=== PATIENT | female | born 1955 | race Caucasian/White ===

== ENCOUNTER 2016-09-11 05:39 | Inpatient (IN) | payer OTHER ==
[2016-09-11] MEDS ORDERED: OXYCODONE (OxyCONTIN) 20 MG TAB PO ONE (06:28)
[2016-09-11] MEDS ORDERED: Celecoxib 200 MG CAP PO ONE (06:28)
[2016-09-11] MEDS ORDERED: CEFAZOLIN 1 GM VIAL ONE (06:35)
[2016-09-11] MEDS ORDERED: LABETALOL 20 MG/4 ML SYRINGE IV PRN (06:59)
[2016-09-11] MEDS ORDERED: HYDROmorphone 1 MG INJECTION IV PRN ×4 (06:59→11:22)
[2016-09-11] MEDS ORDERED: ONDANSETRON HCL 4 MG ODT TAB PO PRN (06:59)
[2016-09-11] MEDS ORDERED: MEPERIDINE 25 MG/ML TUBEX IV PRN (06:59)
[2016-09-11] MEDS ORDERED: PROMETHAZINE 25 MG/ML VIAL IV PRN ×2 (06:59)
[2016-09-11] MEDS ORDERED: FENTANYL 100 MCG/2 ML VIAL IV PRN ×2 (06:59)
[2016-09-11] MEDS ORDERED: ONDANSETRON HCL 4 MG/2 ML VIAL IV PRN (06:59)
[2016-09-11] MEDS ORDERED: hydrALAZINE 20 MG/ML VIAL IV PRN (06:59)
[2016-09-11] MEDS ORDERED: Acetaminophen, Intravenous 1,000 MG/100 ML IVBOT IV ONE (07:00)
--- NOTE | 2016-09-11 07:00 | SC.ANESPOS ---
Post-Anesthesia Note LOC: [facility] Calling Post-Anesthesia Assessment: Awake, Returned to Baseline, Hemodynamically Stable , Pain Control Adequate Phase I & II Recovery Complete: Yes Apparent Anesthesia Complication: No : N - Vital Signs Blood Pressure: 138/78 Pulse: 78 Resp Rate: 18 O2 Sat: 98 Temp: 98.9 F
[2016-09-11 07:01] LABS: BLOOD UREA NITROGEN 12 MG/DL (7-17); CALCIUM 9.1 MG/DL (8.4-10.2); CALCULATED OSMOLALITY 269 MOs/Kg (270-290); CHLORIDE 104 mEq/L (98-107); GLUCOSE 97 MG/DL (70-99); SODIUM LEVEL 140 mEq/L (137-146)
--- NOTE | 2016-09-11 07:01 | HIM.ANES ---
Anesthesia Evaluation & Plan Diagnoses: UNILATERAL PRIMARY OSTEOARTHRITIS, LEFT KNEE (09/11/16) - Focused Review of Systems Cardiac History: No: Hx Cardiac Disorders HEENT: Yes: Hx Vision Problem (GLASSES), Other HEENT Problems Hx Other HEENT Problems: CHRONIC SINUSITIS AND RHINNITIS Gastrointestinal: Yes: Hx Gastroesophageal Reflux Disease (Controlled), Hx Gastrointestinal Disorders, Hx Diverticulitis (DIVERTICULOSIS), Hx Colonoscopy ( 12/2012), Hx Endoscopy (12/2012) Neurological/Musculoskeletal: Yes: Hx Back Pain No: Hx Neurological Disorders Psychological: No Hx Mental/Emotional Disorders Blood/Autoimmune: No: Hx Blood Transfusions, Hx AIDS, Hx Hepatitis (type) Smoking Status: Never smoker Other Surgical History: BILATERAL BREAST AUGMENTATION 2006 STRETCHED URETHRA - Focused Physical Exam Mallampati: Class II Thyromental Distance: Greater than 3 Neck: Full Range of Motion Dental: Normal - no significant findings, Other (Caps) Cardiovascular/Chest: Normal Respiratory: Lungs clear Any problems with anesthesia, including nausea and vomiting?: Yes (NAUSEA) Any relatives with a history of Malignant Hyperthermia?: No Beta Audra given (if appropriate): N/A Does the patient have a history of Motion Sickness-: Yes Other: Allergies Allergy/AdvReac Type Severity Reaction Status Date / Time iodine Allergy Severe Hives* Verified 09/11/16 06:52 latex Allergy INFLAMATION Verified 09/11/16 06:52 Home Medications Medication Instructions Recorded Last Taken Type Hydrocodone Bit/Acetaminophen 1 tab PO Q4H PRN 12/11/12 09/10/16 09:00 History [Hydrocodon-Acetaminophn 10-325] Loratadine [Claritin] 10 mg PO DAILY 12/11/12 09/11/16 05:00 History Calcium Carb & Cit/Vitamin D3 2 tab PO DAILY 09/04/16 09/10/16 09:00 History [Calcium + D3 ER Tab (600mg/500IU)] Methylcellulose [Fiber] 2,000 mg PO DAILY 09/04/16 09/10/16 07:00 History Ranitidine HCl [Zantac] 150 mg PO BID 09/04/16 09/10/16 18:00 History Height and Weight Patient's height 5 ft 5 in Patient's weight 148 lb BMI 23.3 Vital Signs Temperature 98.9 F 09/11/16 07:00 Pulse Rate 78 09/11/16 07:00 Respiratory Rate 18 09/11/16 07:00 Blood Pressure 138/78 09/11/16 07:00 Pulse Oxygen Saturation 98 09/11/16 07:00 - Anesthetic Plan Anesthesia Type: General ASA Class: 2 -: I have examined this patient and reviewed the medical record. The patient has been assessed prior to anesthesia. Risks and benefits of anesthesia and anesthetic technique options have been discussed and all questions answered. The patient accepts the risk and desires me to proceed with the planned anesthetic.
[2016-09-11] MEDS: CEFAZOLIN 1 GM VIAL ONE ×2 (07:03→07:21)
[2016-09-11] MEDS: BUPIVACAINE LIPOSOME/PF 1.3% 20 ML VIAL INF ONE ×3 (07:05→10:25)
[2016-09-11] MEDS: BUPIVACAINE 0.5% 30 ML VIAL ONE ×2 (07:20→10:25)
--- NOTE | 2016-09-11 07:21 | HISTPHYS ---
- History of Present Illness Ms. Serrato is a very pleasant 60 year old female who is here today for left total knee arthroplasty. She has had chronic left knee pain ongoing for the past 3-4 years. She has been seen in the office multiple times and has undergone conservative treatments with NSAIDs, cortisone injections, physical therapy and viscosupplementation but failed to see relief. She finished Orthovisc injections in 07/2016. X-rays demonstrate grade 4 degeneration along the medial joint line with significant patellofemoral wear as well. She is here today for left knee arthroplasty. - Medical History Cardiac History: Reports: No Significant History Respiratory History: Reports: No Significant History GI/ History: Reports: Urinary Tract Infection, Gastroesophageal Reflux Musculoskeletal History: Reports: Arthritis (HANDS , LEFT KNEE) Systemic History: Reports: Cancer (left breast, lumpectomy 2006) - Medictions/Allergies Allergies iodine Allergy (Severe, Verified 09/11/16 06:52) Hives* latex Allergy (Verified 09/11/16 06:52) INFLAMATION Home Medications Hydrocodone Bit/Acetaminophen [Hydrocodon-Acetaminophn 10-325] 1 tab PO Q4H PRN 12/11/12 Loratadine [Claritin] 10 mg PO DAILY 12/11/12 Calcium Carb & Cit/Vitamin D3 [Calcium + D3 ER Tab (600mg/500IU)] 2 tab PO DAILY 09/04/16 Methylcellulose [Fiber] 2,000 mg PO DAILY 09/04/16 Ranitidine HCl [Zantac] 150 mg PO BID 09/04/16 - Family History Reports: Hypertension (BROTHER, 4 SISTERS), Cancer (SISTER COLON AND OVARIAN CA , SISTER BREAST CA). Denies: Diabetes, Stroke, Cardiac Disorders - Social History Travel Outside of [place] in the Last 3 Months?: No Smoking Status: Never smoker - Review of Systems Constitutional: No Symptoms Reported Eyes: No Symptoms Reported Ears: No Symptoms Reported Nose: No Symptoms Reported Respiratory: No Symptoms Reported Cardiovascular: No Symptoms Reported Gastrointestinal: No Symptoms Reported - Physical Exam Vital Signs: Initial Vitals Temperature 98.9 F 09/11/16 06:54 Pulse Rate 78 09/11/16 06:54 Respiratory Rate 18 09/11/16 06:54 Blood Pressure 138/78 09/11/16 06:54 Pulse Oxygen Saturation 98 09/11/16 06:54 Constitutional: No apparent distress, Alert. negative: Distress Oriented to: Time, Person, Place - Musculoskeletal Extremities: Other (Left Knee: Tender over medial joint line and laterally over the LCL. Varus deformity noted. AROM: -5 to 120 degrees range of motion. Strength 5/5. Moderate effusion noted. Ligaments stable medially and laterally with negativeanterior and posterior drawer. No muscle atrophy.) - Lab Results 09/11/16 06:40 - Diagnostic Findings Left Knee Xray 05/11/2016: 4 Weight Bearing views were taken. There are no bony or soft tissue lesions noted. There is now grade 4 medial joint space narrowing with medial subchondral sclerosis and osteophyte formation which is worst on the WB view. There is also some subluxation of the femur medially on the tibia. There is varus malalignment. The lateral compartment joint space is maintained. The patellofemoral joint appears to have some degenerative changes with the patella in a lateral tilt. - Assessment/Plan (1) Degenerative joint disease of left knee M17.12 - UNILATERAL PRIMARY OSTEOARTHRITIS, LEFT KNEE Acute primary M17.12 - Unilateral primary osteoarthritis, left knee Plan: Dr. Couch examined the patient and informed consent was obtained. Patient will proceed with a left total knee arthroplasty today. All questions have been answered.
[2016-09-11] MEDS ORDERED: SCOPOLAMINE TRANSDERMAL PATCH TOP ONE (07:23)
[2016-09-11] MEDS ORDERED: MIDAZOLAM 2 MG/2 ML VIAL IV ONE (10:34)
[2016-09-11] MEDS ORDERED: GLYCOPYRROLATE 1 MG VIAL IM ONE (10:34)
[2016-09-11] MEDS ORDERED: LIDOCAINE 4% 5 ML AMPULE NEB ONE (10:34)
[2016-09-11] MEDS ORDERED: ROCURONIUM 50 MG/5 ML VIAL IV ONE (10:34)
[2016-09-11] MEDS ORDERED: NEOSTIGMINE 1 MG/1 ML (1:1000) INJ 10 ML MDV IM ONE (10:34)
[2016-09-11] MEDS ORDERED: FENTANYL 250 MCG/5 ML VIAL IV ONE (10:34)
[2016-09-11] MEDS ORDERED: HYDROmorphone 2 MG/ML VIAL IM ONE (10:34)
[2016-09-11] MEDS ORDERED: LABETALOL 5 MG/ML MDV IV ONE (10:34)
[2016-09-11] MEDS ORDERED: PROPOFOL 200 MG/20 ML VIAL IV ONE (10:34)
[2016-09-11] MEDS ORDERED: DEXAMETHASONE 4 MG/ML VIAL IV ONE (10:34)
[2016-09-11] MEDS ORDERED: ONDANSETRON HCL 4 MG/2 ML VIAL IV ONE (10:34)
[2016-09-11] MEDS ORDERED: KETOROLAC TROMETH 30 MG/ML VIAL IM ONE (10:34)
--- NOTE | 2016-09-11 11:09 | HIMOPRPT ---
DATE OF PROCEDURE: 09/11/16 PREOPERATIVE DIAGNOSIS: Osteoarthritis left knee. POSTOPERATIVE DIAGNOSIS: same. OPERATION PERFORMED: Cemented left total knee arthroplasty. SURGEON: Jose Couch MD LITIGATION COUNSEL: [JEANNINE Gonzales] . ANESTHESIA: General. ESTIMATED BLOOD LOSS: 250 mL. DRAINS: None. COMPLICATIONS: None. DISPOSITION: Stable to the recovery room. PROCEDURE IN DETAIL: The patient was taken back to the surgical suite, where general anesthesia was induced. The bump was placed under the left hip. Bolsters were positioned to hold the knee at maximal flexion and in 90 degrees flexion. The tourniquet was applied to the left thigh, and secured with 1000 drapes. The left foot, leg, and thigh were then prepped and draped in the standard sterile fashion. A midline anterior skin incision was made. This was carried down to a medial subvastus capsular incision. Hemostasis was achieved with the Bovie throughout the case. The initial portion of the case was done with the tourniquet down. The medial collateral ligament was released at its attachment to the proximal tibia partially. This dissection was carried around posteriorly on the tibia. Similarly, the lateral capsule was released from the proximal aspect of the lateral tibia. A drill was used to make the starting hole in the distal femur. The intramedullary guide cornelio with the attached distal femoral cutting block and jig were then inserted up shaft of the femur. The distal femoral cutting block was set at 5 degrees of valgus, and a 10-mm cut was felt to be adequate. The distal femoral cutting block was pinned to the distal femur. The guide cornelio and jig were then removed. The distal femoral cut was then made. The femur was then sized at a size 6. The size 6, all-in-one cutting block was then pinned to the distal femur. The remaining distal femoral cuts were made with the cutting block. The ACL and PCL were then resected. The tibia was subluxed anteriorly on the femur and the medial meniscus and lateral meniscus were then resected. The posterior capsule was also released from the femur, with a Bovie and Carpenter elevator. Following this, attention was directed to the proximal tibia. The extramedullary cutting jig was used to orient the proximal tibial cutting block. There was severe bone wear along the medial tibia and the cut was set at the lowest part of this wear medially. The block was aligned and then was pinned to the proximal tibia. The guide was then removed. The block was checked with the alignment cornelio and it was felt to be in good alignment. The final cross pin was then inserted into the proximal tibial cutting block, and the oscillating saw was used to make the proximal tibial cut. The tibia was sized at a size 5 tibia. The flexion and extension gaps were then checked. These were noted to be equal with the 7 mm spacer. Following this , the femoral preparation was completed by performing the notch cut on the femur. A trial femoral component was then impacted onto the femur. It was noted to have good fit and stability. A size 5 modular tibial tray trial with a 7 mm posterior stabilized trial poly insert, was inserted onto the tibia. The knee was brought through range of motion and the correct rotation for the tibial component was marked on the anterior aspect of the proximal tibia. The preparation of the patella was then performed. The patella was measured at 22 mm in thickness. The patellar cutting jig was then clamped onto the patella, and the patellar cut was made. The remaining patella was noted to be 13 mm. The patella was sized to a 35, and the 3 PEG holes were then drilled with the drill guide. A trial 35 patellar component was placed. The knee was brought through range of motion, and patellar tracking was noted to be central. At this point, the leg was exsanguinated with an Esmarch, and the tourniquet was inflated to 300 mmHg. The trial components were then removed. The tibial preparation was completed by drilling and punching the proximal tibia with the appropriate guide. Exparel was injected into the posterior capsule. Prosthetic components were opened. The cut bony surfaces were irrigated with pulsatile lavage and suctioned dry. A bone plug was placed in the distal femoral drill hole. Two packs of gentamicin cement were then mixed in the injection syringe. Cement was then injected onto the proximal tibia, and the size 5 fixed bearing tibial tray was impacted onto the tibia. Excess cement was removed. Cement was then injected onto the distal femur. The size 6 narrow left posterior stabilized cemented femoral component was then impacted onto the distal femur. Excess cement was removed. A trial 7 mm stabilized poly insert was placed on the tibial tray. The knee was brought into extension, and axial compression was placed across the joint. Cement was then injected onto the patella and a size 35 All-Poly oval medialized dome patellar component was clamped into position, and excess cement was removed. The prosthesis used was the synthetic substitute metal Be[employer]io[employer] Attune total knee. The cement was allowed to cure. The tourniquet was deflated after cement had cured,and final hemostasis was achieved.Then, the stability of the knee was again checked. The knee was brought through range of motion. It was noted to come into full extension with good soft tissue balance medially and laterally. Mid-range soft tissue balance was good as well, and soft tissue balance at 90 degrees flexion, was good. At this point, the trial poly component was removed and a prosthetic 7 mm size 6 posterior stabilized fixed bearing poly insert was impacted onto the tibial tray, and the knee was then reduced and brought through range of motion. It was noted to have good soft tissue balance in flexion and extension, with central patellar tracking, and full extension. The knee was then irrigated with the pulsatile lavage. Exparel was injected medially and laterally along the MCL, LCL, VMO, and capsular incision. Another round of irrigation was performed. The capsular incision was closed with #2 FiberWire suture and #1 Vicryl suture. The knee triangle was used to flex the knee to 30 degrees for the closure. The subcutaneous tissues were then irrigated , injected with 5% Sensorcaine, and closed in 2 layers with inverted 0-Vicryl suture deep, inverted 2-0 Vicryl suture superficially. Subcuticular 3-0 Monocryl running sutures were then placed in the skin and a sterile Aquacel Ag dressing was applied. The patient was then extubated and taken to the recovery room in stable condition. The patient tolerated the procedure well without immediate complications.
[2016-09-11] MEDS ORDERED: ZOLPIDEM TARTRATE 5 MG TAB PO PRN (11:22)
[2016-09-11] MEDS ORDERED: SODIUM CHLORIDE 0.9% 3 ML FLUSH FLUSH PRN (11:22)
[2016-09-11] MEDS ORDERED: MAGNESIUM HYDROXIDE 30 ML BOTTLE PO PRN (11:22)
[2016-09-11] MEDS ORDERED: Aluminum;Magnesium;Simethicone 30 ML UDC PO PRN (11:22)
[2016-09-11] MEDS ORDERED: DIPHENHYDRAMINE 50 MG/ML VIAL IV PRN (11:22)
[2016-09-11] MEDS ORDERED: BISACODYL 10 MG SUPP PR PRN (11:22)
[2016-09-11] MEDS ORDERED: DIPHENHYDRAMINE 25 MG CAP PO PRN (11:22)
[2016-09-11] MEDS ORDERED: OXYCODONE HCL 5 MG TABLET PO PRN (11:22)
[2016-09-11] MEDS ORDERED: Pharmacy Discontinue All Previous Acetaminophen Orders SCH (12:00)
[2016-09-11] MEDS ORDERED: NALOXONE 0.4 MG/ML AMPULE IV SCH (12:00)
--- NOTE | 2016-09-11 12:23 | DIRPT ---
CLINICAL DATA: Status post left TKA EXAM: PORTABLE LEFT KNEE - 1-2 VIEW COMPARISON: None. FINDINGS: The left knee demonstrates a total knee arthroplasty without evidence of hardware failure complication. There is no significant joint effusion. There is no fracture or dislocation. The alignment is anatomic. Post-surgical changes noted in the surrounding soft tissues. IMPRESSION: Left knee arthroplasty as described above. Electronically Signed By: Debo Frost On: 09/11/2016 12:20
[2016-09-11] MEDS ORDERED: FENTANYL 100 MCG/2 ML VIAL ONE (12:39)
[2016-09-11] MEDS: NS 1,000 ML IV SCH ×2 (13:13→21:32)
[2016-09-11] MEDS ORDERED: Vaccine Screening Complete SCH (14:00)
[2016-09-11] MEDS: CALCIUM CARBONATE + VITAMIN D 500 MG TAB PO SCH ×2 (14:23→16:40)
[2016-09-11] MEDS: VITAMINS, MULTIPLE CAP PO SCH (14:24)
[2016-09-11] MEDS: Cefazolin 2gm/50 ml D5W 2 GM/50 ML RTU IV SCH ×2 (14:45→21:32)
[2016-09-11] MEDS: ONDANSETRON HCL 4 MG/2 ML VIAL IV SCH ×2 (14:45→16:43)
[2016-09-11] MEDS: Acetaminophen, Intravenous 1,000 MG/100 ML IVBOT IV SCH (16:09)
[2016-09-11] MEDS: SODIUM CHLORIDE 0.9% 3 ML FLUSH FLUSH SCH (16:40)
[2016-09-11] MEDS: PANTOPRAZOLE 40 MG TAB PO SCH (16:40)
[2016-09-11] MEDS: Aspirin (Orange Enteric Coated) 325 mg tab PO SCH (16:40)
[2016-09-11] MEDS: RANITIDINE 150 MG TAB PO SCH (21:26)
[2016-09-11] MEDS: OXYCODONE (OxyCONTIN) 10 MG TAB PO SCH (21:26)
[2016-09-12] MEDS: Acetaminophen, Intravenous 1,000 MG/100 ML IVBOT IV SCH ×3 (00:29→11:40)
[2016-09-12] MEDS: ONDANSETRON HCL 4 MG/2 ML VIAL IV SCH ×5 (00:30→22:59)
[2016-09-12] MEDS: Cefazolin 2gm/50 ml D5W 2 GM/50 ML RTU IV SCH (05:15)
[2016-09-12] MEDS: PANTOPRAZOLE 40 MG TAB PO SCH ×2 (05:51→16:44)
[2016-09-12] MEDS: SODIUM CHLORIDE 0.9% 3 ML FLUSH FLUSH SCH ×2 (05:51→16:45)
[2016-09-12 07:30] LABS: MPV 8.3 fL (7.4-10.4)
[2016-09-12] MEDS: Aspirin (Orange Enteric Coated) 325 mg tab PO SCH ×2 (07:44→17:37)
[2016-09-12 07:45] LABS: BLOOD UREA NITROGEN 12 MG/DL (7-17); CALCIUM 8.3 MG/DL (8.4-10.2); CALCULATED OSMOLALITY 262 MOs/Kg (270-290); CHLORIDE 102 mEq/L (98-107); GLUCOSE 91 MG/DL (70-99); SODIUM LEVEL 136 mEq/L (137-146)
[2016-09-12] MEDS: OXYCODONE (OxyCONTIN) 10 MG TAB PO SCH ×2 (07:45→21:22)
[2016-09-12] MEDS: Loratadine 10 MG TAB PO SCH (07:45)
[2016-09-12] MEDS: RANITIDINE 150 MG TAB PO SCH ×2 (07:45→21:22)
[2016-09-12] MEDS: PSYLLIUM 1 PACK PO SCH (07:45)
[2016-09-12] MEDS ORDERED: Remove Transdermal Scopolamine Patch after 24 hours ONE (08:00)
[2016-09-12] MEDS ORDERED: METHYLCELLULOSE PO SCH (09:00)
--- NOTE | 2016-09-12 09:04 | PCM.ORTHBL ---
- Subjective Hospital Day #: 1 Post Op Day: 1 (s/p left TKA) Daily Assessment - Patient: Reports: No new complaints, Awake Alert Oriented x4 , Still having pain, Tolerating liquids well, Tolerating Regular Diet, Afebrile. Denies: Difficulty Swallowing, Shortness of breath, Nausea, Vomiting - Objective / Physical Exam Vital Signs: Temperature: 98.5 F (09/12/16 06:00) HR: 73 (09/12/16 06:00)RR: 18 (09/12/16 06: 00) BP: 117/58 (09/12/16 06:00)Pulse Ox: 99 (09/12/16 06:00) General: Alert, Oriented x3, Cooperative, No acute distress Musculoskeletal / Extremities: 2 plus Dorsalis Pedis Pulse, Dressing Clean/Dry/ Intact, Swelling (moderate), Capillary Refill, Muscle Tone, Motor 5/5 throughout , Other (AROM:5-80 degrees.) Neurological: Positive Sensation First Dorsal Web Space, Sensation to light touch intact (mild tingling noted on plantar aspect of foot), Dorsiflexion Intact, Plantarflexion Intact Skin: Warm,Dry and Intact, No rashes, No breakdown, Erythema, Warmth Laboratory/Diagnostics Reviewed: 09/12/16 06:45 09/12/16 06:45 - Assessment and Plan (1) Degenerative joint disease of left knee Acute M17.12 - UNILATERAL PRIMARY OSTEOARTHRITIS, LEFT KNEE primary M17.12 - Unilateral primary osteoarthritis, left knee (2) Total knee replacement status Acute Z96.659 - PRESENCE OF UNSPECIFIED ARTIFICIAL KNEE JOINT Present on Admission: No left Z96.652 - Presence of left artificial knee joint Plan: Patient is doing well. Had an episode of low BP yesterday but resolved nicely. Pain is controlled. On ASA 325mg BID, TEDs and SCDs for DVT prophylaxis. Will plan to work with PT today on ambulation and ROM. May use CPM as desired. Will continue to follow; plan for d/c home possibly tomorrow.
[2016-09-12] MEDS: NS 1,000 ML IV SCH ×3 (09:12→21:22)
--- NOTE | 2016-09-12 09:15 | PCM.DCS92 ---
- Final/Secondary Discharge Diagnosis (1) Degenerative joint disease of left knee Acute M17.12 - UNILATERAL PRIMARY OSTEOARTHRITIS, LEFT KNEE Present on Admission: Yes primary M17.12 - Unilateral primary osteoarthritis, left knee (2) Total knee replacement status Acute Z96.659 - PRESENCE OF UNSPECIFIED ARTIFICIAL KNEE JOINT Present on Admission: No left Z96.652 - Presence of left artificial knee joint Discharge Disposition: Discharge w/ Home Health Discharge Condition: Stable Cognitive Discharge Status: Unimpaired Fuctional Discharge Status: Walker Assistance, Fall Risk, Recent lower extremety joint replacement Physician Follow up/Referrals: Jose Couch MD [Staff Physician] - Two Weeks Prescriptions for Oxycodone, Aspirin and Zofran given in office. Diet at Discharge: As Tolerated Activity: No Restrictions, As Tolerated Call Office For: Worsening Symptoms, Wound is Draining Pus, Fever over 101 F, Pain Uncontrolled By Meds Discontinue use of:: Alcohol, All Illegal Substances, All Types of Tobacco - DC Summary Notes Hospital Course Note:: Discharge summary on patient named ELZA ROJAS admitted to [facility] on 09/11/16 by Jose Couch MD. Date of discharge is 09/13/2016. Attending physician: Dr. Couch Procedure performed: Left total knee arthroplasty Condition on discharge: Stable Discharged to: home with home health HPI: 60-year-old female with longstanding history of Left knee pain secondary to underlying osteoarthritis having failed extensive conservative treatment including anti-inflammatories, Tylenol, rest, activity modification, home exercise program, cortisone injection, and Visco supplement. Patient elected to have Left total knee arthroplasty. Hospital course: Patient underwent Left total knee arthroplasty on 09/11/2016 and was admitted for observation and physical therapy. Physical therapy was started postop day 0 with patient progressing well postop day 1 and postop day 2. Diet was advanced with bladder function intact. Pain well controlled with oral medications. By post-op day 2 patient was doing well and ready for discharge. Wound Care Surgical Site: Yes Site Description (if applicable): left anterior knee May Shower Starting:: at discharge Remove Clear Dressing In How Many Days?: 2 weeks post-op Medical Equipment (Order must still be written on paper): Walker Medication Instructions: Rx Given at Clinic Continue Ice Packs/Ice Machine to Operative Area: Yes Activity as Tolerated: Yes Weight Bearing: As Tolerated Current Dressing: Aquacel Dressing Care: Keep Wound Clean & Dry, No Tub Baths, Do Not Change Dressing - Consults/Home Health Outpatient Consults: Home Health
[2016-09-12] MEDS: CALCIUM CARBONATE + VITAMIN D 500 MG TAB PO SCH ×2 (11:40→16:44)
[2016-09-12] MEDS: VITAMINS, MULTIPLE CAP PO SCH (11:40)
[2016-09-13] MEDS: SODIUM CHLORIDE 0.9% 3 ML FLUSH FLUSH SCH (05:32)
[2016-09-13] MEDS: ONDANSETRON HCL 4 MG/2 ML VIAL IV SCH ×2 (05:32→12:32)
[2016-09-13] MEDS: PANTOPRAZOLE 40 MG TAB PO SCH (05:32)
[2016-09-13 07:36] LABS: MPV 8.4 fL (7.4-10.4)
[2016-09-13] MEDS: RANITIDINE 150 MG TAB PO SCH (08:05)
[2016-09-13] MEDS: Loratadine 10 MG TAB PO SCH (08:05)
[2016-09-13] MEDS: OXYCODONE (OxyCONTIN) 10 MG TAB PO SCH (08:05)
[2016-09-13] MEDS: PSYLLIUM 1 PACK PO SCH (08:05)
[2016-09-13] MEDS: Aspirin (Orange Enteric Coated) 325 mg tab PO SCH (08:05)
--- NOTE | 2016-09-13 08:10 | PCM.ORTHBL ---
- Subjective Chief Complaint: Patient says pain is under okay control but she had more swelling over night and explains the tightness is uncomfortable. Hospital Day #: 2 Post Op Day: 2 (s/p left TKA) Daily Assessment - Patient: Reports: No new complaints, Awake Alert Oriented x4 , Still having pain, Tolerating liquids well, Tolerating Regular Diet, Afebrile. Denies: Difficulty Swallowing, Shortness of breath, Nausea, Vomiting - Objective / Physical Exam Vital Signs: Temperature: 99.1 F (09/13/16 06:00) HR: 98 (09/13/16 06:00)RR: 20 (09/13/16 06: 00) BP: 111/53 (09/13/16 06:00)Pulse Ox: 97 (09/13/16 06:00) General: Alert, Oriented x3, Cooperative, Mild distress Musculoskeletal / Extremities: 2 plus Dorsalis Pedis Pulse, Dressing Clean/Dry/ Intact, Swelling (moderate), Capillary Refill, Muscle Tone, FROM (0-80 degrees this am; tight because of swelling), Motor 5/5 throughout Neurological: Positive Sensation First Dorsal Web Space, Sensation to light touch intact, Dorsiflexion Intact, Plantarflexion Intact Skin: Warm,Dry and Intact, No rashes, No breakdown Laboratory/Diagnostics Reviewed: 09/13/16 06:33 09/12/16 06:45 - Assessment and Plan (1) Degenerative joint disease of left knee Acute M17.12 - UNILATERAL PRIMARY OSTEOARTHRITIS, LEFT KNEE Present on Admission: Yes primary M17.12 - Unilateral primary osteoarthritis, left knee (2) Total knee replacement status Acute Z96.659 - PRESENCE OF UNSPECIFIED ARTIFICIAL KNEE JOINT Present on Admission: No left Z96.652 - Presence of left artificial knee joint Plan: Patient is progressing well with PT. More ice was ordered for her ice pack to help manage swelling. She will continue pain management and ASA for DVT prophylaxis. Will plan for d/c to home later today if doing well with PT.
[2016-09-13] MEDS: NS 1,000 ML IV SCH (12:32)
[2016-09-13] MEDS: CALCIUM CARBONATE + VITAMIN D 500 MG TAB PO SCH (12:32)
[2016-09-13] MEDS: VITAMINS, MULTIPLE CAP PO SCH (12:32)
[2016-09-13 15:41] VITALS: BP 99/59; PULSE 106; TEMP 98.5
== END 2016-09-13 16:51 | disposition home health service (06) | DRG 470 ==
LOC: SDC 05:39 → MPS3 13:01
PROVIDERS: ADMIT Orthopaedic Surgery; ATTEND Orthopaedic Surgery
PROC: 0SRD0J9 Replacement of Left Knee Joint with Synthetic Substitute, Cemented, Open Approach (ICD-10-PCS; principal; 2016-09-11 07:15)
PROC: 30233N1 Transfusion of Nonautologous Red Blood Cells into Peripheral Vein, Percutaneous Approach (ICD-10-PCS; 2016-09-13)
DX: M17.12 Unilateral primary osteoarthritis, left knee (principal); D62 Acute posthemorrhagic anemia; K21.9 Gastro-esophageal reflux disease without esophagitis; Z85.3 Personal history of malignant neoplasm of breast; Z88.8 Allergy status to other drugs, medicaments and biological substances; Z91.040 Latex allergy status; Z79.899 Other long term (current) drug therapy
CPT/HCPCS: 36430; 80048; 85014; 85018; 85027; 86850; 86900; 86901; 86920; 97161; 97165; C9290; G0237; J0131; J0171; J0690; J1100; J1170; J1885; J2250; J2405; J2710; J3010; J3490; P9016